=== PATIENT | female | born 1935 | race Caucasian/White ===

== ENCOUNTER 2018-08-12 14:01 | Inpatient (IN) | payer MEDICARE, OTHER ==
[~2018-08-12] VITALS: Ht 167.6 cm; Wt 87.5 kg
--- NOTE | 2018-08-12 14:12 | NUR ---
ekg done at 1410
--- NOTE | 2018-08-12 14:18 | NUR ---
PT ARRIVES TO ED WITH C/O OF INCREASED SOB THAN NORMAL. PT WAS SHOPPING AND FELT LIKE SHE HE WAS GOING TO PASS OUT. SO SHE SAT IN HER CAR AND CALLED EMS. PT THEN WAS BROUGHT HERE. 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 PT CONNECTED TO ALL MONITORS AND CALL LIGHT IN REACH. AWAITING FURTHER ORDERS AT THIS TIME. SHELBIE Soriano RN COMPLETED EKG.
[2018-08-12] MEDS ORDERED: ENOXAPARIN 80 MG/0.8 ML ONE (14:26)
[2018-08-12] MEDS ORDERED: DILTIAZEM 5 MG/ML, 10ML ONE (14:26)
[2018-08-12] MEDS: PLEASE ENTER ALLERGIES MC SCH ×3 (14:30→20:26)
[2018-08-12] MEDS ORDERED: SODIUM CHLORIDE FLUSH 10ML SYR IVF ONE (14:30)
[2018-08-12] MEDS ORDERED: DILTIAZEM 5 MG/ML, 5ML IV ONE (14:30)
[2018-08-12] MEDS ORDERED: ENOXAPARIN 40 MG/0.4 ML SQ ONE (14:30)
[2018-08-12 14:43] LABS: BASOPHILS # (AUTO) 0.03 x10^3/uL (0-0.1); BASOPHILS % (AUTO) 0 % (0-1); EOSINOPHILS # (AUTO) 0.26 x10^3/uL (0-0.4); EOSINOPHILS % (AUTO) 4 % (1-7); LYMPHOCYTES % (AUTO) 19 % (22-44); MD NO; MEAN CORPUSCULAR HEMOGLOBIN 28.3 pg (27.0-34.8); MEAN CORPUSCULAR HGB CONC 32.1 g/dL (32.4-35.8); MEAN CORPUSCULAR VOLUME 88.3 fL (80-100); MEAN PLATELET VOLUME 7.7 fL (7.4-10.4); MONOCYTES # (AUTO) 0.59 x10^3/uL (0.2-0.8); MONOCYTES % (AUTO) 9 % (2-9); NEUTROPHILS # (AUTO) 4.64 x10^3/uL (1.8-6.8); NEUTROPHILS % (AUTO) 68 % (42-75); PLATELET COUNT 282 x10^3/uL (130-400); RED BLOOD COUNT 5.06 x10^6/uL (3.82-5.3); RED CELL DISTRIBUTION WIDTH 14.2 % (9.6-15.2)
[2018-08-12 14:52] LABS: ALANINE AMINOTRANSFERASE 35 U/L (12-78); ALBUMIN 3.2 g/dL (3.4-5.0); ANION GAP 6 mmol/L (5-15); CALCIUM 8.5 mg/dL (8.5-10.1); CHLORIDE 107 mmol/L (98-107); CREATININE 0.95 mg/dL (0.55-1.02)
[2018-08-12 14:56] LABS: ALKALINE PHOSPHATASE 108 U/L (45-117); BILIRUBIN,TOTAL 0.2 mg/dL (0.2-1.0); TOTAL PROTEIN 7.7 g/dL (6.4-8.2); TROPONIN I < 0.015 ng/mL (0.000-0.045)
--- NOTE | 2018-08-12 15:01 | NUR ---
PT APPEARS TO HAVE CONVERTED, MD INFORMED. PT RESTING IN BED.
[2018-08-12 15:20] LABS: FREE T4 (FREE THYROXINE) 0.91 ng/dL (0.76-1.46)
[2018-08-12] MEDS ORDERED: SODIUM CHLORIDE FLUSH 10ML SYR IVF PRN (16:00)
[2018-08-12] MEDS ORDERED: ESTR0.5T PO (16:26)
[2018-08-12] MEDS ORDERED: METO-99 PO (16:26)
[2018-08-12] MEDS ORDERED: ASPI-515 PO (16:26)
[2018-08-12] MEDS ORDERED: LEVO25TA4 PO (16:26)
[2018-08-12] MEDS ORDERED: LOSA25TA25 PO (16:26)
[2018-08-12] MEDS ORDERED: ACETAMINOPHEN 325 MG TABLET PO PRN (16:30)
[2018-08-12] MEDS ORDERED: ONDANSETRON 2MG/ML, 2ML IVPush PRN (16:30)
[2018-08-12] MEDS: ENOXAPARIN 40 MG/0.4 ML SQ SCH (16:30)
[2018-08-12] MEDS ORDERED: ONDANSETRON ODT 4 MG PO PRN (16:30)
--- NOTE | 2018-08-12 16:43 | NUR ---
SPOKE WITH DR. CASILLAS REGARDING LOVENOX SHOT BEING VERY CLOSE TO ONE ERP ORDERED. DR. CASILLAS SAID TO HOLD OFF AND START SECOND DOSE IN EVENING. NON ADMIN ON EMAR COMPLETED.
--- NOTE | 2018-08-12 16:55 | NUR ---
REPORT TO SRAVANI
[2018-08-12 17:32] LABS: TROPONIN I 0.041 ng/mL (0.000-0.045)
[2018-08-12 17:45] VITALS: BP 142/89
[2018-08-12] MEDS: CARVEDILOL 12.5 MG TABLET PO SCH (18:00)
[2018-08-12] MEDS: SODIUM CHLORIDE 0.9% 1,000 ML IV SCH (18:20)
[2018-08-12 21:27] VITALS: BP 129/81
[2018-08-12] MEDS: LOSARTAN 50MG TABLET PO SCH (21:44)
[2018-08-12 22:29] LABS: TROPONIN I 0.062 ng/mL (0.000-0.045)
[2018-08-13 00:39] VITALS: BP 116/80
[2018-08-13] MEDS: CARVEDILOL 12.5 MG TABLET PO SCH ×2 (05:05→18:21)
[2018-08-13] MEDS: ENOXAPARIN 40 MG/0.4 ML SQ SCH ×2 (05:05→18:20)
[2018-08-13 05:08] VITALS: BP 136/89
[2018-08-13] MEDS ORDERED: NITROGLYCERIN 0.4 MG BOTTLE (25 TABS) SL PRN (05:30)
[2018-08-13] MEDS ORDERED: NITROGLYCERIN 0.4 MG/SPRAY SL PRN (05:30)
[2018-08-13 06:00] LABS: BASOPHILS # (AUTO) 0.02 x10^3/uL (0-0.1); BASOPHILS % (AUTO) 0 % (0-1); EOSINOPHILS # (AUTO) 0.34 x10^3/uL (0-0.4); EOSINOPHILS % (AUTO) 6 % (1-7); LYMPHOCYTES # (AUTO) 1.86 x10^3/uL (1-3.4); LYMPHOCYTES % (AUTO) 35 % (22-44); MD NO; MEAN CORPUSCULAR HEMOGLOBIN 29.2 pg (27.0-34.8); MEAN CORPUSCULAR VOLUME 88.3 fL (80-100); MEAN PLATELET VOLUME 7.6 fL (7.4-10.4); MONOCYTES # (AUTO) 0.62 x10^3/uL (0.2-0.8); MONOCYTES % (AUTO) 12 % (2-9); NEUTROPHILS % (AUTO) 47 % (42-75); PLATELET COUNT 243 x10^3/uL (130-400); RED BLOOD COUNT 4.53 x10^6/uL (3.82-5.3); RED CELL DISTRIBUTION WIDTH 13.7 % (9.6-15.2)
[2018-08-13 06:07] LABS: CHLORIDE 108 mmol/L (98-107)
[2018-08-13 06:15] LABS: ANION GAP 4 mmol/L (5-15); CALCIUM 8.2 mg/dL (8.5-10.1); CREATININE 0.81 mg/dL (0.55-1.02); TROPONIN I 0.033 ng/mL (0.000-0.045)
[2018-08-13 07:13] VITALS: BP_SYST 115; BP_SYST 125; BP_DIAS 75; BP_DIAS 80
[2018-08-13] MEDS ORDERED: LOSARTAN 50MG TABLET PO SCH (09:00)
[2018-08-13] MEDS: LEVOTHYROXINE 50 MCG TABLET PO SCH (09:55)
[2018-08-13] MEDS: SODIUM CHLORIDE 0.9% 1,000 ML IV SCH (09:55)
[2018-08-13 12:38] LABS: MICROSCOPIC AUTO
[2018-08-13 12:47] LABS: CULTURE INDICATED? YES
[2018-08-13 13:31] VITALS: BP 137/85
[2018-08-13] MEDS ORDERED: CEFTRIAXONE PMX 1GM/50ML 50 ML IV SCH (17:30)
[2018-08-13 18:20] VITALS: BP 154/97
[2018-08-13 20:33] VITALS: BP 148/78
[2018-08-13] MEDS: LOSARTAN 50MG TABLET PO SCH (21:59)
[2018-08-14 05:07] VITALS: BP 134/85
[2018-08-14] MEDS: CARVEDILOL 12.5 MG TABLET PO SCH (05:09)
[2018-08-14] MEDS: SODIUM CHLORIDE 0.9% 1,000 ML IV SCH (05:10)
[2018-08-14] MEDS: ENOXAPARIN 40 MG/0.4 ML SQ SCH (05:10)
[2018-08-14 07:47] VITALS: BP 123/78
[2018-08-14] MEDS ORDERED: RIVA15TA PO (09:22)
[2018-08-14] MEDS ORDERED: CEFD300C37 PO (09:22)
[2018-08-14] MEDS ORDERED: CARV12.543 PO (09:22)
[2018-08-14] MEDS ORDERED: RIVA20TA PO (09:22)
[2018-08-14] MEDS: LEVOTHYROXINE 50 MCG TABLET PO SCH (09:26)
== END 2018-08-14 10:46 | disposition home or self-care (01) | DRG 309 ==
LOC: ED 15:04 → EDIP 16:17 → 5SO 17:22 → DCLOUNGE 08-14 10:35
PROVIDERS: ADMIT Hospitalist; ATTEND Internal Medicine
DX: I48.91 Unspecified atrial fibrillation (principal); N39.0 Urinary tract infection, site not specified; G47.00 Insomnia, unspecified; I73.9 Peripheral vascular disease, unspecified; G89.4 Chronic pain syndrome; J44.9 Chronic obstructive pulmonary disease, unspecified; I50.9 Heart failure, unspecified; I11.0 Hypertensive heart disease with heart failure; Z90.710 Acquired absence of both cervix and uterus; Z95.0 Presence of cardiac pacemaker; Z99.81 Dependence on supplemental oxygen; Z88.6 Allergy status to analgesic agent; Z82.49 Family history of ischemic heart disease and other diseases of the circulatory system
CPT/HCPCS: 36415; 71045; 80048; 80053; 81001; 83735; 83880; 84439; 84443; 84484; 85025; 87040; 87086; 93005; 93306; 96374; 96375; G0378; J0696; J1650; J7030